=== PATIENT | female | born 1945 | race Caucasian/White ===

== ENCOUNTER 2017-02-24 10:18 | Emergency (ER) | payer MEDICAID, MEDICARE ==
[2017-02-24 10:49] VITALS: BP 118/56
[2017-02-24] MEDS ORDERED: Sodium Chloride 0.9% 10 ML Syringe FLUSH PRN (10:49)
[2017-02-24] MEDS ORDERED: Furosemide 40 MG/4 ML VIAL IVPUSH ONE (10:49)
--- NOTE | 2017-02-24 10:57 | EDM.PDOC ---
ED HPI GENERAL MEDICAL PROBLEM - General Chief Complaint: Respiratory Problem Stated Complaint: SOB Time Seen by Provider: 02/24/17 10:40 Source of Information: Reports: Patient, Family History Limitations: Reports: No Limitations - History of Present Illness INITIAL COMMENTS - FREE TEXT/NARRATIVE: 71-year-old female presents to the walk-in clinic or family medicine unit with an exacerbation of her COPD. O2 sats only 82%. She was therefore placed on oxygen brought to the ED. Patient reports that she's gradually had increased shortness of breath and spent all day in bed yesterday and was up a good portion of the night last night sitting up due to dyspnea. She has a minimal cough. No sputum production. Dyspnea on minimal exertion such as going from the bed to the bathroom. She has known congestive heart failure. She has an ischemic cardiomyopathy. Had quadruple bypass in 2000 after an [place]. She reports that approximately a month ago she reduced her Lasix to half the normal dose because she was voiding so much. This likely is the trigger for exacerbation of congestive heart failure. On 5 L of oxygen she is 90%. Will change her to a mask at 10 L/m. Onset: Gradual Onset Date: 02/21/17 Duration: Day(s): Location: Reports: Chest (Slight heaviness central chest with dyspnea on minimal exertion.) Quality: Reports: Ache, Pressure, Other (Mild central chest) Severity: Severe (mostly shortness of breath on minimal exertion.) Improves with: Reports: Rest Worsens with: Reports: Movement Context: Denies: Activity, Exercise, Lifting, Sick Contact, Trauma, Other Associated Symptoms: Reports: Chest Pain (Mild central chest heaviness.), Cough , Loss of Appetite, Malaise, Shortness of Breath, Weakness. 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) Chest Pain Score (Numeric/FACES): 2 - Related Data Allergies Allergy/AdvReac Type Severity Reaction Status Date / Time No Known Allergies Allergy Verified 02/24/17 10:49 Home Meds: Home Meds Enalapril [Vasotec] 1.75 mg PO DAILY 02/24/17 [History] Furosemide 40 mg PO DAILY 02/24/17 [History] Insulin Aspart [Novolog] 100 unit SQ ASDIRECTED 02/24/17 [History] Insulin Glarg,Human.Rec.Analog [LantUS Solostar] 30 units SUBCUT BEDTIME [History] Levothyroxine [Synthroid] 50 mcg PO ACBREAKFAST 02/24/17 [History] Nebivolol HCl [Bystolic] 10 mg PO BID 02/24/17 [History] Pramipexole [Mirapex] 0.25 mg PO BID 02/24/17 [History] Pregabalin [Lyrica] 50 mg PO BEDTIME 02/24/17 [History] Sertraline [Zoloft] 50 mg PO DAILY 02/24/17 [History] amLODIPine [Norvasc] 10 mg PO BEDTIME 02/24/17 [History] atorvaSTATin [Lipitor] 20 mg PO BEDTIME 02/24/17 [History] traZODone 1 tab PO BEDTIME 02/24/17 [History] Past Medical History HEENT History: Reports: Cataract, Impaired Vision Cardiovascular History: Reports: Bypass (Quadruple bypass 2000.), CAD, Heart Failure, [place], SOB on Exertion, Stents Respiratory History: Reports: SOB Genitourinary History: Reports: Chronic Renal Insuffiency, Renal Disease 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: Musculoskeletal History: Reports: Arthritis, Fracture, Neck Pain, Chronic Other Musculoskeletal History: previous left shoulder fracture Endocrine/Metabolic History: Reports: Diabetes, Type I, Hypothyroidism Hematologic History: Reports: Anemia, Blood Transfusion(s) - Infectious Disease History Infectious Disease History: Reports: Chicken Pox, Measles, Mumps - Past Surgical History HEENT Surgical History: Reports: Cataract Surgery Cardiovascular Surgical History: Reports: Coronary Artery Bypass, Coronary Artery Stent Social & Family History - Family History Family Medical History: Noncontributory Cardiac: Reports: AZ Other Cardiac Family History: Sister from heart attack Neurological: Reports: CVA Other Neurological Family History: mother Endocrine/Metabolic: Reports: Diabetes, type II Other Oncologic Family History: mother's sisters had cancer, unsure of type - Tobacco Use Smoking Status *Q: Former Smoker Years of Tobacco use: 20 Packs/Tins Daily: 0.5 Used Tobacco, but Quit: Yes Month Tobacco Last Used: many years ago Second Hand Smoke Exposure: No - Recreational Drug Use Recreational Drug Use: No - Living Situation & Occupation Living situation: Reports: , Alone Occupation: Retired ED ROS GENERAL - Review of Systems Review Of Systems: See Below Constitutional: Reports: Malaise, Weakness, Fatigue, Decreased Appetite (Early satiety.), Weight Loss. Denies: Fever, Chills HEENT: Reports: Other Respiratory: Reports: Shortness of Breath (Dry mouth.), Wheezing, Cough. Denies : Pleuritic Chest Pain, Sputum (Nonproductive), Hemoptysis Cardiovascular: Reports: Chest Pain, Dyspnea on Exertion, Edema, Lightheadedness , Orthopnea. Denies: Blood Pressure Problem (Slight central chest heaviness), Claudication Endocrine: Reports: Fatigue (Severe particularly the last 3 days.) GI/Abdominal: Reports: Decreased Appetite, Distension. Denies: Abdominal Pain : Reports: Frequency, Incontinence (Urgent stress components) Musculoskeletal: Reports: Neck Pain (Knees and hips at time), Back Pain, Joint Pain Skin: Reports: No Symptoms ( at times in her neck.) Neurological: Reports: No Symptoms, Difficulty Walking Psychiatric: Reports: No Symptoms (Due to dyspnea.) Hematologic/Lymphatic: Reports: No Symptoms Immunologic: Reports: No Symptoms ED EXAM, GENERAL - Physical Exam Exam: See Below Exam Limited By: Respiratory Distress (Moderate to severe respiratory distress.) General Appearance: Alert, WD/WN, Moderate Distress Eye Exam: Bilateral Eye: Normal Inspection Throat/Mouth: Normal Inspection, Normal Lips, Normal Oropharynx, Other Head: Atraumatic (Tongue is dry and coated.), Normocephalic Neck: Normal Inspection, Supple, Non-Tender, Full Range of Motion. No: Carotid Bruit, Lymphadenopathy (L), Lymphadenopathy (R) Respiratory/Chest: No Accessory Muscle Use, Respiratory Distress (Moderate tachypnea at rest 20/m.), Decreased Breath Sounds (Decreased breath sounds to the posterior lung tamayo bilaterally. Clinically she has a pleural effusion involving the lower), Rales ( 4 inches of her left lung. Scattered rales throughout both lungs.). No: Normal Breath Sounds, Wheezing Cardiovascular: Regular Rate, Rhythm, JVD (3 cm below, right angle of the mandible.), Other (Well-healed midline sternotomy incision). No: Normal Peripheral Pulses, Systolic Murmur Peripheral Pulses: 1+: Posterior Tibial (L), Posterior Tibial (R), Dorsalis Pedis (L), Dorsalis Pedis (R) GI/Abdominal: Normal Bowel Sounds, Soft, Non-Tender, No Organomegaly, Distended (Anticipated percussion the upper half of the abdomen compatible with aerophagia.), Abnormal Bowel Sounds (Overactive) Back Exam: Normal Inspection, Full Range of Motion. No: CVA Tenderness (L), CVA Tenderness (R) Extremities: Normal Inspection, Normal Capillary Refill, Pedal Edema Neurological: Alert (1+ pitting edema lower extremities bilaterally.), Oriented , CN II-XII Intact, Normal Cognition, No Motor/Sensory Deficits. No: Normal Gait Psychiatric: Normal Affect, Normal Mood Skin Exam: Warm, Dry, Intact, Normal Color, No Rash EKG INTERPRETATION EKG Date: 02/24/17 Time: 10:40 Rhythm: NSR Rate (Beats/Min): 80 [place]: Normal P-Wave: Enlarged (Consider left atrial hypertrophy pattern) QRS: Other (Q waves leads V1 and V2 compatible with an old anteroseptal myocardial infarctions.) ST-T: Depressed (ST segment is depressed V4 V5 V6 1 and aVL possible ischemia versus left ventricular strain.) QT: Prolonged (QT prolonged at 411.) Course - Vital Signs Last Recorded V/S: Last Vital Signs Temp 36.2 C 02/24/17 10:34 Pulse 84 02/24/17 10:34 Resp 20 02/24/17 10:34 BP 118/56 L 02/24/17 10:34 Pulse Ox 92 L 02/24/17 12:13 - Orders/Labs/Meds Orders: Active Orders 24 hr Category Date Time Status EKG Documentation Completion [RC] STAT Care 02/24/17 10:48 Active Peripheral IV Care [RC] . DIRECTED Care 02/24/17 10:49 Active RT Aerosol Therapy [RC] ASDIRECTED Care 02/24/17 12:13 Active Chest 1V Frontal [CR] Stat Exams 02/24/17 10:48 Taken Nitroglycerin/D5W [Nitroglycerin 25 MG/D5W 250 ML] Med 02/24/17 12:30 Active 25 mg in 250 ml IV TITRATE Sodium Chloride 0.9% [Saline Flush] Med 02/24/17 10:49 Active 10 ml FLUSH ASDIRECTED PRN Peripheral IV Insertion Adult [OM.PC] Stat Oth 02/24/17 10:49 Ordered Medication Orders Nitroglycerin/Dextrose (Nitroglycerin 25 Mg/D5w 250 Ml) 25 mg in 250 mls @ 3 mls/hr IV TITRATE ANTONIO PRN Reason: 5 MCG/MIN Last Admin: 02/24/17 12:40 Dose: 5 mcg/min, 3 mls/hr Sodium Chloride (Saline Flush) 10 ml FLUSH ASDIRECTED PRN PRN Reason: Keep Vein Open Last Admin: 02/24/17 11:09 Dose: 10 ml Labs: Laboratory Tests 02/24/17 02/24/17 02/24/17 Range/Units 10:52 11:10 11:10 WBC 10.50 H (3.98-10.04) K/mm3 RBC 2.95 L (3.98-5.22) M/mm3 Hgb 9.2 L (11.2-15.7) gm/L Hct 28.0 L (34.1-44.9) % MCV 94.9 H (79.4-94.8) fl MCH 31.2 (25.6-32.2) pg MCHC 32.9 (32.2-35.5) g/dl RDW Std Deviation 44.6 (36.4-46.3) fL Plt Count 131 L (182-369) K/mm3 MPV 11.7 (9.4-12.3) fl Neutrophils % (Manual) 93 H (40-60) % Band Neutrophils % 1 (0-10) % Lymphocytes % (Manual) 3 L (20-40) % Atypical Lymphs % 0 % Monocytes % (Manual) 2 (2-10) % Eosinophils % (Manual) 0 L (0.7-5.8) % Basophils % (Manual) 1 (0.1-1.2) Platelet Estimate Adequate Plt Morphology Comment Normal Hypochromasia 1+ slight Microcytosis 1+ slight RBC Morph Comment Not Reportable PT 10.4 (8.0-13.0) SECONDS INR 0.96 Puncture Site Rt radial ABG pH 7.37 (7.35-7.45) ABG pCO2 35.5 (35.0-45.0) mmHg ABG pO2 53.0 L (80.0-100.0) mmHg ABG HCO3 19.8 L (22.0-26.0) meq/L ABG O2 Saturation 92.7 L (96.0-97.0) % ABG Base Excess -4.4 L (-2-2.0) Randell Test Positive O2 Delivery Device Mask FiO2 0.00 L (21.00-100.00) % Sodium (136-145) mEq/L Potassium (3.5-5.1) mEq/L Chloride (98-107) mEq/L Carbon Dioxide (21-32) mEq/L Anion Gap (5-15) BUN (7-18) mg/dL Creatinine (0.55-1.02) mg/dL Est Cr Clr Drug Dosing mL/min Estimated GFR (MDRD) (>60) mL/min BUN/Creatinine Ratio (14-18) Glucose (83-115) mg/dL Calcium (8.5-10.1) mg/dL Magnesium (1.8-2.4) mg/dl Total Bilirubin (0.2-1.0) mg/dL AST (15-37) U/L ALT (14-59) U/L Alkaline Phosphatase (46-116) U/L CK-MB (CK-2) (0-3.6) ng/ml Troponin I (0.00-0.056) ng/mL C-Reactive Protein (<1.0) mg/dL NT-Pro-B Natriuret Pep (0-125) pg/mL Total Protein (6.4-8.2) g/dl Albumin (3.4-5.0) g/dl Globulin gm/dL Albumin/Globulin Ratio (1-2) TSH 3rd Generation (0.358-3.74) uIU/mL Urine Color (Yellow) Urine Appearance (Clear) Urine pH (5.0-8.0) Ur Specific Carrie (1.005-1.030) Urine Protein (Negative) Urine Glucose (UA) (Negative) Urine Ketones (Negative) Urine Occult Blood (Negative) Urine Nitrite (Negative) Urine Bilirubin (Negative) Urine Urobilinogen (0.2-1.0) Ur Leukocyte Esterase (Negative) Urine RBC (0-5) /hpf Urine WBC (0-5) /hpf Ur Epithelial Cells (0-5) /hpf Urine Bacteria (FEW) /hpf Hyaline Casts (0-5) /lpf Urine Mucus (FEW) /hpf 02/24/17 02/24/17 02/24/17 Range/Units 11:10 11:10 13:05 WBC (3.98-10.04) K/mm3 RBC (3.98-5.22) M/mm3 Hgb (11.2-15.7) gm/L Hct (34.1-44.9) % MCV (79.4-94.8) fl MCH (25.6-32.2) pg MCHC (32.2-35.5) g/dl RDW Std Deviation (36.4-46.3) fL Plt Count (182-369) K/mm3 MPV (9.4-12.3) fl Neutrophils % (Manual) (40-60) % Band Neutrophils % (0-10) % Lymphocytes % (Manual) (20-40) % Atypical Lymphs % % Monocytes % (Manual) (2-10) % Eosinophils % (Manual) (0.7-5.8) % Basophils % (Manual) (0.1-1.2) Platelet Estimate Plt Morphology Comment Hypochromasia Microcytosis RBC Morph Comment PT (8.0-13.0) SECONDS INR Puncture Site ABG pH (7.35-7.45) ABG pCO2 (35.0-45.0) mmHg ABG pO2 (80.0-100.0) mmHg ABG HCO3 (22.0-26.0) meq/L ABG O2 Saturation (96.0-97.0) % ABG Base Excess (-2-2.0) Randell Test O2 Delivery Device FiO2 (21.00-100.00) % Sodium 140 (136-145) mEq/L Potassium 5.0 (3.5-5.1) mEq/L Chloride 106 (98-107) mEq/L Carbon Dioxide 20 L (21-32) mEq/L Anion Gap 19.0 H (5-15) BUN 37 H (7-18) mg/dL Creatinine 2.0 H (0.55-1.02) mg/dL Est Cr Clr Drug Dosing 24.15 mL/min Estimated GFR (MDRD) 25 (>60) mL/min BUN/Creatinine Ratio 18.5 H (14-18) Glucose 196 H (83-115) mg/dL Calcium 8.6 (8.5-10.1) mg/dL Magnesium 1.9 (1.8-2.4) mg/dl Total Bilirubin 0.9 (0.2-1.0) mg/dL AST 36 (15-37) U/L ALT 28 (14-59) U/L Alkaline Phosphatase 132 H (46-116) U/L CK-MB (CK-2) 1.2 (0-3.6) ng/ml Troponin I 0.423 H* (0.00-0.056) ng/mL C-Reactive Protein 3.7 H* (<1.0) mg/dL NT-Pro-B Natriuret Pep 63137 H (0-125) pg/mL Total Protein 6.8 (6.4-8.2) g/dl Albumin 3.1 L (3.4-5.0) g/dl Globulin 3.7 gm/dL Albumin/Globulin Ratio 0.8 L (1-2) TSH 3rd Generation 2.032 (0.358-3.74) uIU/mL Urine Color Yellow (Yellow) Urine Appearance Clear (Clear) Urine pH 6.0 (5.0-8.0) Ur Specific Carrie 1.020 (1.005-1.030) Urine Protein 1+ H (Negative) Urine Glucose (UA) Negative (Negative) Urine Ketones Negative (Negative) Urine Occult Blood Negative (Negative) Urine Nitrite Negative (Negative) Urine Bilirubin Negative (Negative) Urine Urobilinogen 0.2 (0.2-1.0) Ur Leukocyte Esterase 1+ H (Negative) Urine RBC 0-5 (0-5) /hpf Urine WBC 0-5 (0-5) /hpf Ur Epithelial Cells 10-20 H (0-5) /hpf Urine Bacteria Moderate H (FEW) /hpf Hyaline Casts 0-5 (0-5) /lpf Urine Mucus Not seen (FEW) /hpf Meds: Medications Generic Name Dose Route Start Last Admin Trade Name Freq PRN Reason Stop Dose Admin Nitroglycerin/Dextrose 25 mg in 250 mls @ 3 mls/hr 02/24/17 12:30 02/24/17 12 :40 Nitroglycerin 25 Mg/D5w 250 Ml IV 5 mcg/min TITRATE ANTONIO 3 mls/hr 5 MCG/MIN Administration Sodium Chloride 10 ml 02/24/17 10:49 02/24/17 11:09 Saline Flush FLUSH 10 ml ASDIRECTED PRN Administration Keep Vein Open Discontinued Medications Generic Name Dose Route Start Last Admin Trade Name Freq PRN Reason Stop Dose Admin Albuterol 1.25 mg 02/24/17 12:13 02/24/17 12:44 Proventil Neb Soln NEB 02/24/17 12:14 1.25 mg ONETIME ONE Administration Aspirin 324 mg 02/24/17 12:27 02/24/17 12:35 Aspirin PO 02/24/17 12:28 324 mg ONETIME ONE Administration Enoxaparin Sodium 80 mg 02/24/17 12:27 02/24/17 12:37 Lovenox SUBCUT 02/24/17 12:28 80 mg ONETIME ONE Administration Furosemide 40 mg 02/24/17 10:49 02/24/17 11:09 Lasix IVPUSH 02/24/17 10:50 40 mg NOW ONE Administration - Radiology Interpretation Free Text/Narrative:: 71-year-old female presents to the ED with significant hypoxia 82% on room air. Shortness of breath and dyspnea on minimal exertion gradually worsening over the last 3 days. Up all night last night due to shortness of breath. History of congestive heart failure. Previous microinfarction followed by quadruple bypass repaired about 2000. She reports that she was on Lasix 20 mg twice a day but discontinued this down to once daily about a month ago. She couldn't stand the excess of need to void. She hasn't eaten much at all for the last 2 days. Denies any nausea vomiting fever or chills. Plan given on 6 L by nasal cannula she is only 91%. I will therefore place her on a mask --nonrebreather at 10 L/ m. One view chest x-ray to be done. Routine labs to include cardiac markers and BNP. Serum magnesium as well. Will give her Lasix 60 mg IV. Blood pressures a little low at 112 to withstand a nitro drip at this time. - Re-Assessments/Exams Free Text/Narrative Re-Assessment/Exam: 02/24/17 11:35 portable chest x-ray reveals hyperinflated lung tamayo moderate cardiomegaly and diffuse vascular congestion with slight blunting of the right costophrenic angle. There are is no pleural effusion. ECG revealed sinus rhythm at 80 per minute with Q waves in V1 to V2 compatible with an old anteroseptal myocardial infarction. 02/24/17 11:37 A ABGs reveal a pH of 7.37 with a PCO2 of 35.5 and PO2 is 53 bicarbonate is 19.8 sats are 92.7. Note this is on 10 L/m by mask. White count is 10.50 differential pending hemoglobin is low at 9.2 hematocrit is 28.0 MCV is 94. Platelets 131,000. 02/24/17 12:28 labs called over and indicated that her troponin is markedly elevated at 0.4-3 which indicates likely myocardial infarction. The other lab are not shed back. I will therefore go ahead and give her 324 mg of aspirin chewed. She'll be given Lovenox 80 mg subcutaneously and be started on nitro drip at 5 mcg/m as her blood pressure is 117/98. 02/24/17: Other labs reveal a sodium of 140 potassium 5.0 chloride 106 bicarbonate 20 and a gap is 19.0 BUNs 37 creatinine is 2.0 EGFR is only 25 i.e. stage IV chronic kidney disease glucose 196. Her CK-MB fraction is not yet back. CRP is elevated 3.7 BNP is elevated at 16,400. TSH is normal at 2.032. 02/24/17 12:37 I discussed the findings were herself and her sisters. Patient [facility] to [facility] ,for cardiology evaluation. She is to see Dr. Conroy until he left but has seen Dr. Clancy once. 02/24/17 12:[address] Núñez hospitalist at [facility] in [place] and she has accepted care of this patient. Reason for transport is non- STEMI with ECG changes with ST segment depression the street to V6 and one in aVL an elevated troponin at 0.423. She will be transported by ground ambulance as soon as transport team can be assembled. 02/24/17 14:13 CK-MB fraction came back at 1.2 suggesting that myocardial infarction occurred at least 2-3 days ago. Departure - Departure Time of Disposition: 14:00 Disposition: DC/Tfer to Acute Hospital 02 Condition: Poor Clinical Impression: Acute pulmonary edema, Hypoxia, Non-STEMI (non-ST elevated myocardial infarction), Abnormal ECG, Elevated troponin I measurement Congestive heart failure with left ventricular diastolic dysfunction Qualifiers: Congestive heart failure chronicity: acute on chronic Qualified Code(s): I50.33 - Acute on chronic diastolic (congestive) heart failure - Discharge Information Referrals: Rosie Cho, [facility] [Primary Care Provider] - Forms: ED Department Discharge Additional Instructions: Patient will be [facility] at her request. She is been followed by cardiology at that institution for many years. - My Orders Last 24 Hours: My Active Orders 02/24/17 10:48 EKG Documentation Completion [RC] STAT Chest 1V Frontal [CR] Stat 02/24/17 10:49 Peripheral IV Care [RC] . DIRECTED Sodium Chloride 0.9% [Saline Flush] 10 ml FLUSH ASDIRECTED PRN Peripheral IV Insertion Adult [OM.PC] Stat 02/24/17 12:13 RT Aerosol Therapy [RC] ASDIRECTED 02/24/17 12:30 Nitroglycerin/D5W [Nitroglycerin 25 MG/D5W 250 ML] 25 mg in 250 ml IV TITRATE - Assessment/Plan Last 24 Hours: My Active Orders 02/24/17 10:48 EKG Documentation Completion [RC] STAT Chest 1V Frontal [CR] Stat 02/24/17 10:49 Peripheral IV Care [RC] . DIRECTED Sodium Chloride 0.9% [Saline Flush] 10 ml FLUSH ASDIRECTED PRN Peripheral IV Insertion Adult [OM.PC] Stat 02/24/17 12:13 RT Aerosol Therapy [RC] ASDIRECTED 02/24/17 12:30 Nitroglycerin/D5W [Nitroglycerin 25 MG/D5W 250 ML] 25 mg in 250 ml IV TITRATE
[2017-02-24] MEDS ORDERED: Albuterol 0.042% 1.25 MG/3 ML Neb Soln NEB ONE (12:13)
[2017-02-24] MEDS ORDERED: Enoxaparin 100 MG/1 ML Syringe SUBCUT ONE (12:27)
[2017-02-24] MEDS ORDERED: Aspirin 81 MG Tab.Chew PO ONE (12:27)
[2017-02-24] MEDS ORDERED: Nitroglycerin/D5W 25 MG/250 ML BOTTLE IV SCH (12:30)
--- NOTE | 2017-02-24 15:44 | CR ---
Chest: Portable view of the chest was obtained. Comparison: Previous chest x-ray of 09/28/16. Heart is enlarged. Pulmonary vessels are congested which appear fairly stable from prior exam. Slight thickening of the right minor fissure is noted. Surgical clips are seen at the base of the right neck. Previous sternotomy is noted. Impression: 1. Cardiomegaly with pulmonary vessels appearing congested. Findings are fairly stable from prior exam. Diagnostic code #3
== END 2017-02-24 13:35 ==
LOC: JD.ED 10:18
DX: I21.4 Non-ST elevation (NSTEMI) myocardial infarction (principal); I50.33 Acute on chronic diastolic (congestive) heart failure; R79.89 Other specified abnormal findings of blood chemistry; E10.22 Type 1 diabetes mellitus with diabetic chronic kidney disease; N18.9 Chronic kidney disease, unspecified; I25.10 Atherosclerotic heart disease of native coronary artery without angina pectoris; I25.2 Old myocardial infarction; Z95.1 Presence of aortocoronary bypass graft; E03.9 Hypothyroidism, unspecified; Z87.891 Personal history of nicotine dependence; Z79.899 Other long term (current) drug therapy; Z79.4 Long term (current) use of insulin
CPT/HCPCS: 36415; 36600; 71010; 80053; 81001; 82553; 82803; 83735; 83880; 84443; 84484; 85025; 85610; 86140; 93005; 94640; 96365; 96372; 96375; 99285; A9270; J1650; J1940; J7050

== ENCOUNTER 2017-05-15 14:50 | Emergency (ER) | payer MEDICARE, MEDICAID ==
[2017-05-15 15:16] VITALS: BP 93/38
[2017-05-15] MEDS ORDERED: HYDROmorphone 0.5 MG/0.5 ML Syringe IVPUSH ONE (15:30)
[2017-05-15] MEDS ORDERED: Sodium Chloride 0.9% 10 ML Syringe FLUSH PRN (15:30)
[2017-05-15] MEDS ORDERED: Sodium Chloride 0.9% 500 ML IV ONE (15:30)
[2017-05-15] MEDS ORDERED: 50% Dextrose in Water 50 ML Syringe IVPUSH ONE (15:41)
--- NOTE | 2017-05-15 15:55 | EDM.PDOC ---
ED HPI GENERAL MEDICAL PROBLEM - General Chief Complaint: Upper Extremity Injury/Pain Stated Complaint: RT SHOULDER INJURY Time Seen by Provider: 05/15/17 15:21 Source of Information: Reports: Patient, RN Notes Reviewed - History of Present Illness INITIAL COMMENTS - FREE TEXT/NARRATIVE: 71-year-old lady comes in with severe right shoulder, upper arm pain. she was reaching putting something up on top of a fridge and lost her balance falling with resultant injury. She's not really quite sure just how she landed. She states she was feeling somewhat dizzy at the time. She is insulin-dependent diabetic. She is not eaten much today. The pain of her upper arm, right shoulder is much worse with any type of motion. She denies head and neck chest back or other major pain or injury from the fall. Right Upper Arm Pain Score (Numeric/FACES): 7 - Related Data Allergies Allergy/AdvReac Type Severity Reaction Status Date / Time No Known Allergies Allergy Verified 04/16/17 13:12 Home Meds: Home Meds Enalapril [Vasotec] 1.75 mg PO DAILY 02/24/17 [History] Furosemide 40 mg PO DAILY 02/24/17 [History] Insulin Aspart [Novolog] 100 unit SQ ASDIRECTED 02/24/17 [History] Insulin Glarg,Human.Rec.Analog [LantUS Solostar] 30 units SUBCUT BEDTIME [History] Levothyroxine [Synthroid] 50 mcg PO ACBREAKFAST 02/24/17 [History] Nebivolol HCl [Bystolic] 10 mg PO BID 02/24/17 [History] Pramipexole [Mirapex] 0.25 mg PO BID 02/24/17 [History] Pregabalin [Lyrica] 50 mg PO BEDTIME 02/24/17 [History] Sertraline [Zoloft] 50 mg PO DAILY 02/24/17 [History] amLODIPine [Norvasc] 10 mg PO BEDTIME 02/24/17 [History] atorvaSTATin [Lipitor] 20 mg PO BEDTIME 02/24/17 [History] traZODone 1 tab PO BEDTIME 02/24/17 [History] Acetaminophen/oxyCODONE [Percocet 325-5 MG] 1 tab PO Q6H PRN #20 tablet [Rx] Past Medical History HEENT History: Reports: Cataract, Impaired Vision Cardiovascular History: Reports: Bypass, CAD, Heart Failure, GA, SOB on Exertion , Stents Respiratory History: Reports: SOB Genitourinary History: Reports: Chronic Renal Insuffiency, 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: Musculoskeletal History: Reports: Arthritis, Fracture, Neck Pain, Chronic Other Musculoskeletal History: previous left shoulder fracture Endocrine/Metabolic History: Reports: Diabetes, Type I, Hypothyroidism Hematologic History: Reports: Anemia, Blood Transfusion(s) - Infectious Disease History Infectious Disease History: Reports: Chicken Pox, Measles, Mumps - Past Surgical History HEENT Surgical History: Reports: Cataract Surgery Cardiovascular Surgical History: Reports: Coronary Artery Bypass, Coronary Artery Stent Respiratory Surgical History: Reports: None Social & Family History - Family History Family Medical History: Noncontributory Cardiac: Reports: GA Other Cardiac Family History: Sister from heart attack Neurological: Reports: CVA Other Neurological Family History: mother Endocrine/Metabolic: Reports: Diabetes, type II Other Oncologic Family History: mother's sisters had cancer, unsure of type - Tobacco Use Smoking Status *Q: Former Smoker Years of Tobacco use: 20 Packs/Tins Daily: 0.5 Used Tobacco, but Quit: Yes Month Tobacco Last Used: 20 years Second Hand Smoke Exposure: No - Caffeine Use Caffeine Use: Reports: Coffee - Recreational Drug Use Recreational Drug Use: No - Living Situation & Occupation Living situation: Reports: , Alone Occupation: Retired Review of Systems - Review of Systems Review Of Systems: See Below Constitutional: Denies: Chills, Diaphoresis, Fever Eyes: Reports: No Symptoms Ears: Reports: No Symptoms Nose: Reports: No Symptoms Mouth/Throat: Reports: No Symptoms Respiratory: Denies: Shortness of Breath, Pleuritic Chest Pain Cardiovascular: Denies: Chest Pain GI/Abdominal: Denies: Nausea, Vomiting Musculoskeletal: Reports: Shoulder Pain, Arm Pain Skin: Reports: No Symptoms (Right upper arm) Neurological: Denies: Numbness, Tingling, Weakness ED EXAM, GENERAL - Physical Exam Exam: See Below General Appearance: Alert, Moderate Distress Eye Exam: Bilateral Eye: PERRL Throat/Mouth: Normal Inspection Head: Atraumatic Neck: Supple, Non-Tender, Full Range of Motion Respiratory/Chest: No Respiratory Distress, Chest Non-Tender Extremities: Other (There is tenderness of the upper arm and also of the shoulder anteriorly and laterally, no visible deformity, severe pain with any type of motion). No: Leg Pain Neurological: Alert, Oriented, No Motor/Sensory Deficits Skin Exam: Warm, Dry, Normal Color Course - Vital Signs Last Recorded V/S: Last Vital Signs Temp 98 F 05/15/17 15:13 Pulse 68 05/15/17 15:13 Resp 17 05/15/17 15:13 BP 93/38 L 05/15/17 15:13 Pulse Ox 97 05/15/17 15:13 - Orders/Labs/Meds Orders: Active Orders 24 hr Category Date Time Status Peripheral IV Care [RC] . DIRECTED Care 05/15/17 15:33 Active Shoulder Comp Rt [CR] Stat Exams 05/15/17 15:47 Taken Sodium Chloride 0.9% [Normal Saline] 1,000 ml Med 05/15/17 17:00 Active IV ASDIRECTED Sodium Chloride 0.9% [Saline Flush] Med 05/15/17 15:30 Active 10 ml FLUSH ASDIRECTED PRN Peripheral IV Insertion Adult [OM.PC] Stat Oth 05/15/17 15:30 Ordered Medication Orders Sodium Chloride (Normal Saline) 1,000 mls @ 150 mls/hr IV ASDIRECTED ANTONIO Last Admin: 05/15/17 16:30 Dose: 150 mls/hr Sodium Chloride (Saline Flush) 10 ml FLUSH ASDIRECTED PRN PRN Reason: Keep Vein Open Last Admin: 05/15/17 15:45 Dose: 10 ml Labs: Laboratory Tests 05/15/17 05/15/17 05/15/17 Range/Units 15:26 16:26 18:02 POC Glucose 51 L 176 H 118 H (83-110) mg/dL Meds: Medications Generic Name Dose Route Start Last Admin Trade Name Freq PRN Reason Stop Dose Admin Sodium Chloride 1,000 mls @ 150 mls/hr 05/15/17 17:00 05/15/17 16:30 Normal Saline IV 150 mls/hr ASDIRECTED ANTONIO Administration Sodium Chloride 10 ml 05/15/17 15:30 05/15/17 15:45 Saline Flush FLUSH 10 ml ASDIRECTED PRN Administration Keep Vein Open Discontinued Medications Generic Name Dose Route Start Last Admin Trade Name Freq PRN Reason Stop Dose Admin Dextrose/Water 50 ml 05/15/17 15:41 05/15/17 15:46 Dextrose 50% In Water IVPUSH 05/15/17 15:42 50 ml ONETIME ONE Administration Hydromorphone HCl 0.5 mg 05/15/17 15:30 05/15/17 15:43 Dilaudid IVPUSH 05/15/17 15:31 0.5 mg ONETIME ONE Administration Hydromorphone HCl 0.25 mg 05/15/17 17:01 05/15/17 17:06 Dilaudid IVPUSH 05/15/17 17:02 0.25 mg ONETIME STA Administration Sodium Chloride 500 mls @ 999 mls/hr 05/15/17 15:30 05/15/17 15:42 Normal Saline IV 05/15/17 16:00 999 mls/hr .BOLUS ONE Administration - Re-Assessments/Exams Free Text/Narrative Re-Assessment/Exam: 05/15/17 17:41 Patient was still feeling dizzy and lightheaded on arrival to ED, blood sugar was checked and it was only 51. She was given 1 amp of glucose IV. X-rays of the right shoulder do show impacted fracture of the neck area of the humerus. She is been given IV Dilaudid for pain which is worked quite well for her. Will check her blood sugar again at this time and then plan for discharge. Departure - Departure Time of Disposition: 18:00 Disposition: Home, Self-Care 01 Condition: Fair Clinical Impression: Hypoglycemia Fracture of humerus Qualifiers: Encounter type: initial encounter Humerus Location: surgical neck Fracture type : closed Fracture morphology: unspecified fracture morphology - Discharge Information Prescriptions: Acetaminophen/oxyCODONE [Percocet 325-5 MG] 1 tab PO Q6H PRN #20 tablet PRN Reason: Pain Instructions: Humerus Fracture Treated With Immobilization, [id number], Hypoglycemia Referrals: Rosie Cho, BULB INSPECTOR [Primary Care Provider] - Forms: ED Department Discharge Additional Instructions: Use arm cradled for comfort and protection of the arm, Tylenol for mild to moderate discomfort or Percocet if needed for more severe pain, do not take Tylenol and Percocet at the same time, do not drive when taking Percocet. Follow -up with Dr. Jasso or Dr. Diaz in about 1 week, call for appointment. Return to ED as needed. - My Orders Last 24 Hours: My Active Orders 05/15/17 15:30 Sodium Chloride 0.9% [Saline Flush] 10 ml FLUSH ASDIRECTED PRN Peripheral IV Insertion Adult [OM.PC] Stat 05/15/17 15:33 Peripheral IV Care [RC] . DIRECTED 05/15/17 15:47 Shoulder Comp Rt [CR] Stat 05/15/17 17:00 Sodium Chloride 0.9% [Normal Saline] 1,000 ml IV ASDIRECTED - Assessment/Plan Last 24 Hours: My Active Orders 05/15/17 15:30 Sodium Chloride 0.9% [Saline Flush] 10 ml FLUSH ASDIRECTED PRN Peripheral IV Insertion Adult [OM.PC] Stat 05/15/17 15:33 Peripheral IV Care [RC] . DIRECTED 05/15/17 15:47 Shoulder Comp Rt [CR] Stat 05/15/17 17:00 Sodium Chloride 0.9% [Normal Saline] 1,000 ml IV ASDIRECTED
[2017-05-15] MEDS ORDERED: Sodium Chloride 0.9% 1,000 ML IV SCH (17:00)
[2017-05-15] MEDS ORDERED: HYDROmorphone 0.5 MG/0.5 ML Syringe IVPUSH STA (17:01)
--- NOTE | 2017-05-16 09:22 | CR ---
Right shoulder: Three views of the right shoulder were obtained. Comparison: No prior shoulder exam. Fracture is identified within the surgical neck which extends to the base of the greater tuberosity. Slight impaction is seen with minimal angulation. No additional fracture or other bony abnormality is seen. Previous sternotomy for CABG is noted. Impression: 1. Right shoulder fracture and other incidental findings. Diagnostic code #3
== END 2017-05-15 18:25 | disposition home or self-care (01) ==
LOC: JD.ED 14:50
DX: S42.211A Unspecified displaced fracture of surgical neck of right humerus, initial encounter for closed fracture (principal); S42.251A Displaced fracture of greater tuberosity of right humerus, initial encounter for closed fracture; E10.649 Type 1 diabetes mellitus with hypoglycemia without coma; I50.9 Heart failure, unspecified; Z79.4 Long term (current) use of insulin; Z79.899 Other long term (current) drug therapy; Z87.891 Personal history of nicotine dependence; W19.XXXA Unspecified fall, initial encounter
CPT/HCPCS: 73030; 82962; 96361; 96374; 96375; 96376; 99284; J1170; J7040; J7050; J7060